=== PATIENT | female | born 1960 ===

== ENCOUNTER 2024-05-18 06:15 | Day surgery (SDC) | payer OTHER ==
[2024-05-12 07:47] VITALS: BP 115/73
[2024-05-12 09:29] LABS: HEMATOCRIT 35.6 % (36.0-45.00); HEMOGLOBIN 12.2 g/dL (12.0-15.00); MEAN CELL VOLUME 85.1 fL (80.00-100.00); MEAN CORPUSCULAR HEMOGLOBIN 29.3 pg (27.00-32.0); MEAN CORPUSCULAR HGB CONC 34.4 g/dl (32.0-36.0); PLATELET COUNT 289 K/uL (150-450); RED BLOOD COUNT 4.19 M/uL (4.00-6.00); RED CELL DISTRIBUTION WIDTH 13.1 % (11.5-14.5)
[2024-05-12 09:30] LABS: PH,URINE 5.5 (5.0-8.0); URINE APPEARANCE Clear; URINE BILIRRUBIN Negative (NEGATIVE); URINE BLOOD Negative; URINE COLOR Yellow; URINE GLUCOSE Negative (NEGATIVE); URINE KETONE Negative (NEGATIVE); URINE LEUKOCYTE Small; URINE NITRATE Negative; URINE PROTEIN Negative (NEGATIVE); URINE UROBILINOGEN 0.2 E.U./dl
[2024-05-12 09:31] LABS: URINE BACTERIA 93.2 uL (0.0-1933); URINE EPITHELIAL CELLS 14.9 uL (0.0-38.8); URINE RBC 8.5 uL (0.0-20.8); URINE WBC 45.1 uL (0.0-23.2)
[2024-05-12 09:56] LABS: URINE CAST 0.15 uL (0.0-1.40)
[2024-05-12 09:58] LABS: INR 1.09; PARTIAL THROMBOPLASTIN TIME 29.9 SECONDS (22.0-34.0); PROTHROMBIN TIME 11.8 SECONDS (9.0-11.5)
[2024-05-12 10:36] LABS: BILIRUBIN TOTAL 0.59 mg/dL (0.3-1.2); CALCIUM 9.6 mg/dL (8.5-10.1); CREATININE SERUM 1.05 mg/dL (0.55-1.02); GFR 53.1; GLOBULINA 4.4 G/DL (2.4-3.5); POTASSIUM 3.46 mEq/L (3.5-5.1); TOTAL PROTEIN 8.4 gm/dL (6.4-8.2)
[~2024-05-18] VITALS: Ht 91.4 cm; Wt 5.0 kg
[~2024-05-18 06:15] MED LIST: CARAFATE1 GM/10 ML PO; COZAAR100 MG PO; HYDRODIURIL12.5 MG; NORVASC5 MG PO; ONDANSETRON ODT4 MG PO; PEPCID AC20 MG PO; TOPROL XL50 M1 PO
[2024-05-18] MEDS ORDERED: CEFAZOLIN SODIUM 1,000 MG VIAL IV ONE (08:30)
[2024-05-18] MEDS ORDERED: MORPHINE SULFATE 4 MG/ML VIAL IV ONE ×2 (09:10→09:40)
== END 2024-05-18 12:40 | disposition home or self-care (01) ==
LOC: CIR.AMB 06:15 → SURH 06:15 → O/R 06:15 → CIR.AMB 12:40
PROVIDERS: ATTEND Surgery
DX: K80.10 Calculus of gallbladder with chronic cholecystitis without obstruction (principal); Z88.5 Allergy status to narcotic agent